=== PATIENT | female | born 1990 | race African-American/Black ===

== ENCOUNTER 2019-05-07 05:12 | Inpatient (IN) | payer MEDICAID, OTHER ==
[~2019-05-07] VITALS: Ht 160 cm; Wt 57.6 kg
[2019-05-07] MEDS ORDERED: IBUPROFEN 600 MG TAB PO PRN (06:00)
[2019-05-07] MEDS ORDERED: LIDOCAINE 2%HCL (LOCAL ANESTH.) INJ 20ML MDV ID ONE (06:15)
[2019-05-07] MEDS ORDERED: NALBUPHINE HCL 10 MG/1ml INJECTION IV PRN (06:15)
[2019-05-07] MEDS ORDERED: LACT. RINGERS/OXYTOCIN 20UNITS 1,000 ML IV SCH (06:15)
[2019-05-07] MEDS ORDERED: DERMOPLAST 60ML BOTTLE TOP PRN (06:15)
[2019-05-07] MEDS ORDERED: LACTATED RINGER'S 1,000 ML IV SCH (06:15)
[2019-05-07] MEDS ORDERED: METHYLERGONOVINE MALEATE 0.2 MG/ML AMP IM PRN (06:15)
[2019-05-07] MEDS ORDERED: PHISODERM TOP SOLN 240ML BTL TOP PRN (06:15)
[2019-05-07] MEDS ORDERED: WITCH HAZEL-GLYCERIN PAD TOP PRN (06:15)
[2019-05-07 07:09] LABS: Basophils # (auto) 0.1 uL; Basophils % (auto) 0.9 % (0.0-2.0); Eosinophils # (auto) 0 uL; Eosinophils % (auto) 0.1 % (0.0-7.0); Hematocrit 42.9 % (36.0-46.0); Hemoglobin 14.3 g/dL (12.2-16.2); Lymphocytes # (auto) 0.8 uL; Lymphocytes % (auto) 9.6 % (10.0-50.0); Mean Corpuscular Hemoglobin 32.4 pg (28.0-32.0); Mean Corpuscular Hgb Conc. 33.4 g/dL (32.0-36.0); Monocytes # (auto) 0.3 uL; Monocytes % (auto) 3.9 % (0.0-12.0); Neutrophils # (auto) 6.7 uL; Neutrophils % (auto) 85.5 % (37.0-80.0); Platelet Count (auto) 164 10^3/uL (140-450); Red Blood Cells 4.42 10^6/uL (4.0-5.20); Red Cell Distribution Width 13.4 % (11.8-14.3); White Blood Cell 7.9 10^3/uL (4.4-10.8)
[2019-05-07 07:24] LABS: INR 0.95 (0.9-1.15); Partial Thromboplastin Time 27.4 sec (23.64-32.05)
[2019-05-07 07:26] LABS: Albumin 2.7 g/dL (3.4-5.0); Calcium 8.8 mg/dL (8.5-10.1); Potassium 3.5 mmol/L (3.5-5.1)
[2019-05-07 07:30] LABS: BUN/Creatinine Ratio 7.7; Bilirubin, Total 0.4 mg/dL (0.2-1.0); Total Protein 6.6 g/dL (6.4-8.2)
[2019-05-07 11:00] VITALS: BP 106/59
[2019-05-07 11:27] LABS: Urine Bacteria NONE SEEN /hpf (None Seen); Urine Blood 2+ /uL (Negative); Urine Specific Gravity 1.006 (1.001-1.035); Urine WBC 7 /hpf (0 - 5)
[2019-05-07 11:38] LABS: Alcohol, Urine < 3.0 mg/dL (0-5); Amphetamine Screen, Urine NEGATIVE (NEGATIVE); Barbiturate Scree,Urine NEGATIVE (NEGATIVE); Benzodiazephine Screen, Urine NEGATIVE (NEGATIVE); Cannabinoid Screen, Urine NEGATIVE (NEGATIVE); Cocaine Screen, Urine NEGATIVE (NEGATIVE); Opiate Scree,Urine NEGATIVE (NEGATIVE); Phencyclidine Screen, Urine NEGATIVE (NEGATIVE)
[2019-05-07 15:00] VITALS: BP 103/67
[2019-05-07 19:00] VITALS: BP 116/62
[2019-05-07 22:35] VITALS: BP 121/66
[2019-05-07] MEDS ORDERED: PREN-96 PO (23:05)
[2019-05-08 02:53] VITALS: BP 114/74
[2019-05-08 07:06] LABS: RPR Non Reactive (Non Reactive)
[2019-05-08 07:25] VITALS: BP 106/56
[2019-05-08 08:06] LABS: Rubella Antibodies, IgG 2.35 index (Immune >0.99)
[2019-05-08 11:00] VITALS: BP 107/61
== END 2019-05-08 11:35 | disposition home or self-care (01) | DRG 560 ==
LOC: LDRP 05:12 → OBSVTOIN 05:12
PROVIDERS: ADMIT Specialist; ATTEND Specialist
PROC: 10D07Z6 Extraction of Products of Conception, Vacuum, Via Natural or Artificial Opening (ICD-10-PCS; principal; 2019-05-07)
DX: O62.3 Precipitate labor (principal); Z37.0 Single live birth; Z3A.38 38 weeks gestation of pregnancy
CPT/HCPCS: 36415; 59025; 59409; 80053; 80307; 81001; 84112; 85025; 85610; 85730; 86592; 86703; 86762; 86850; 86900; 86901; 87340; 96361; 96366; G0378